=== PATIENT | male | born 1945 | race Hispanic/Latino ===

== ENCOUNTER 2017-06-06 20:45 | Emergency (ER) | payer MEDICARE, OTHER, MEDICAID ==
[2017-06-06 20:45] VITALS: BMI 26.6
[2017-06-06 20:51] VITALS: BP 130/54; RESP 16; TEMP 98.6; O2SAT 98
--- NOTE | 2017-06-06 21:10 | ED PDOC ---
HPI: Psych/Substance Abuse Time Seen by Provider: 06/06/17 21:00 Chief Complaint (Nursing): Psychiatric Evaluation Chief Complaint (Provider): AGGRESSIVE BEHAVIOR History Per: Patient (71 Y/O MALE H/O DEMENTIA/AFIB/ANXIETY/SEIZURE HERE FOR EVALUATION FOR AGGRESSIVE BEHAVIOR AT HOME. PATIENT THREW OBJECT. PATIENT UNSURE OF EVENTS. STATES HE BELIEVES HE MAY HAD SEIZURE. 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.) Past Medical History Reviewed: Historical Data, Nursing Documentation, Vital Signs Vital Signs: Last Vital Signs Temp 98.6 F 06/06/17 20:47 Pulse 85 06/06/17 20:47 Resp 16 06/06/17 20:47 BP 130/54 L 06/06/17 20:47 Pulse Ox 98 06/06/17 20:47 - Medical History PMH: Alzheimer's Disease, Anxiety, Arthritis, Atrial Fibrillation, Dementia, HTN , Osteoporosis, Pneumonia, Seizures Denies: Chronic Kidney Disease Comment Only: CHF (A-Fib) - Family History Family History: States: No Known Family Hx - Immunization History Hx Tetanus Toxoid Vaccination: Yes (2014) Hx Influenza Vaccination: Yes Hx Pneumococcal Vaccination: Yes - Home Medications Home Medications: Ambulatory Orders Medication Instructions Recorded Bacitracin Ointment [Bacitracin] 1 appful TOP QSHIFT 03/09/17 Carvedilol [Coreg] 12.5 mg PO BID 03/09/17 Clopidogrel [Plavix] 75 mg PO DAILY 03/09/17 Donepezil HCl [Aricept Odt] 10 mg PO HS 03/09/17 Latanoprost 0.005% Opht [Xalatan 1 drop BOTHEYES HS 03/09/17 Opht] Memantine HCl [Namenda Xr] 1 cap PO DAILY 03/09/17 Multivitamin [Multi-Vitamin Daily] 1 tab PO DAILY 03/09/17 Phenobarbital [PHENobarbital Tab] 32.4 mg PO TID 03/09/17 Simvastatin 40 mg PO DAILY 03/09/17 Tamsulosin [Flomax] 0.4 mg PO DAILY 03/09/17 lamoTRIgine [Lamictal] 200 mg PO TID 03/09/17 Aluminum Hydroxide/Magnesium H 30 ml PO DAILY 03/25/17 [Maalox 30 ml] Magnesium Hydroxide [Milk Of 30 ml PO DAILY 03/25/17 Magnesia] Acetaminophen [Tylenol 325mg tab] 650 mg PO Q4 PRN 05/17/17 Divalproex [Depakote ER] 250 mg PO HS 05/17/17 levETIRAcetam [Keppra] 750 mg PO Q12 05/17/17 - Allergies Allergies/Adverse Reactions: Allergies Allergy/AdvReac Type Severity Reaction Status Date / Time No Known Allergies Allergy Verified 05/17/17 16:52 Review of Systems ROS Statement: Except As Marked, All Systems Reviewed And Found Negative Physical Exam - Reviewed Nursing Documentation Reviewed: Yes Vital Signs Reviewed: Yes - Physical Exam Appears: Positive for: Well, Non-toxic, No Acute Distress Head Exam: Positive for: ATRAUMATIC, NORMAL INSPECTION, NORMOCEPHALIC Skin: Positive for: Normal Color, Warm, DRY Eye Exam: Positive for: EOMI, Normal appearance, PERRL ENT: Positive for: Normal ENT Inspection Neck: Positive for: Normal, Painless ROM Cardiovascular/Chest: Positive for: Regular Rate, Rhythm Respiratory: Positive for: CNT, Normal Breath Sounds Gastrointestinal/Abdominal: Positive for: Normal Exam, Bowel Sounds, Soft Back: Positive for: Normal Inspection Extremity: Positive for: Normal ROM Neurologic/Psych: Positive for: Alert, Oriented - ECG ECG Rhythm: Positive for: Sinus Rhythm (NSR 82BPM; NO ECTOPY NO ACUTE CHANGES) O2 Sat by Pulse Oximetry: 98 - Progress ED Course And Treament: ACCUCHECK 102 CXR: NAD SEEN BY CRISIS. CRISIS SPOKE WITH FAMILY WHO WOULD LIKE PATIENT TRANSFERRED BACK TO [facility]. STATE PATIENT IS USUALLY CALM AND COOPERATIVE BUT HAS RECENTLY BEEN MOVED TO ANOTHER FLOOR. PATIENT CLEARED FOR DISCHARGE HOME BY DR. BOB. DIAGNOSIS DEMENTIA. Disposition - Clinical Impression Clinical Impression: Dementia - Patient ED Disposition Is Patient to be Admitted: No - Disposition Disposition: Routine/Home Disposition Time: 22:51 Condition: FAIR Instructions: Dementia (ED) Forms: [employer] ([employer])
[2017-06-06 22:27] VITALS: PULSE 82
--- NOTE | 2017-06-07 10:04 | RAD ---
HISTORY: ROUTINE COMPARISON: Chest radiograph dated 09/21/2012. FINDINGS: LUNGS: No active pulmonary disease. PLEURA: No significant pleural effusion identified, no pneumothorax apparent. CARDIOVASCULAR: Atherosclerotic aortic calcifications. Cardiomediastinal silhouette stably enlarged. OSSEOUS STRUCTURES: Unchanged. VISUALIZED UPPER ABDOMEN: Normal. OTHER FINDINGS: None. IMPRESSION: No active disease.
--- NOTE | 2017-06-07 18:09 | CARD ---
APPROVED REPORT EKG Measurement Heart [id number] <Conclusion> Normal sinus rhythm Normal ECG
== END 2017-06-07 00:05 ==
LOC: H.ER 20:45
DX: F02.80 Dementia in other diseases classified elsewhere, unspecified severity, without behavioral disturbance, psychotic disturbance, mood disturbance, and anxiety (principal); F41.9 Anxiety disorder, unspecified; G30.9 Alzheimer's disease, unspecified; I11.0 Hypertensive heart disease with heart failure; I48.91 Unspecified atrial fibrillation